=== PATIENT | male | born 1980 | race Caucasian/White ===

== ENCOUNTER 2024-05-10 08:41 | Outpatient (AMB) | payer OTHER, SELFPAY ==
--- NOTE | 2024-05-10 08:49 | A.OFFVIS_ITS ---
Vital Signs 05/10/24 08:50 Height 6 ft Weight 268 lb 8.368 oz BMI 36.4 BP 135/80 Blood Pressure Location Lt brachial Position Sitting Intake Visit Reasons: Colonoscopy Screening Intake Note: Ariel presents to in office visit today as a new patient for colonoscopy screening. CC: Patient denies having any GI symptoms or concerns today. 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 He is referred by [facility] adult Medicine in [place]. P.m. X Obesity -BMI 39 Psoriasis Hypertension History of AFib Efrne's thyroiditis Osteoarthritis of the knees Father in law had polps not genetic relative * SURGICAL HISTORY Patellar dislocation Cardiac ablation for AFib Rt total knee replacement * ALLERGIES: NKDA * PCP supplied LABS: 02/2024 unremarkable CBC, unremarkable renal panel, unremarkable hepatic panel, normal TSH TODAY'S VISIT This is his first colonoscopy. He denies any bowel or upper GI problems. There are no prior problems with anesthesia or sedation. His afib is well controlled he is only on asa for s/p TKR prophylaxis. He denies any respiratory problems No ID problems. No know fHX crc or polyps. [facility] Medical History (Updated 05/10/24 @ 09:43 by BHAVESH Moreno) Patellar dislocation Surgical History Total knee replacement status H/O cardiac radiofrequency ablation Family History Maternal Grandfather Heart attack Paternal Grandfather Heart attack Mother HTN (hypertension) Diabetes Social History Alcohol intake: never Patient Tobacco Use Status: Never used Tobacco Review of Systems Const Denies fatigue, Denies fever(s), Denies night sweats, Denies poor appetite and Denies weight loss ENT Reports Normal hearing present, Denies dysphagia, Denies odynophagia, Denies throat swelling and Denies tongue swelling Card Reports no additional complaints Resp Reports no additional complaints GI Details: Denies abdominal pain, Denies melena, Denies bloating, Denies hematochezia, Denies constipation, Denies GI cramping, Denies dysphagia, Denies excessive flatus, Denies early satiety, Denies heartburn, Denies diarrhea, Denies nausea, Denies odynophagia, Denies vomiting and Denies hematemesis Skin/Breast Denies pruritus, Denies lesions, Denies rash and Denies jaundice Neuro Reports Normal hearing present and Denies Abnormal speech present Endo Denies fatigue Aller/Immun Denies throat swelling and Denies tongue swelling Physical Exam Vital Signs: Last Vital Signs BP 135/80 05/10/24 08:50 BMI result Body Mass Index 36.4 Const General: cooperative, no acute distress, well developed and well groomed Nutritional Appearance: well nourished and obese Orientation/consciousness: oriented to person, oriented to place and oriented to time Limitations: No language barrier HEENT Head: Yes normocephalic and Yes atraumatic Eyes General: appearance normal, both eyes and all related structures Pupils: Equal, round and reactive pupils present Neck Neck: Yes normal visual inspection and Yes no lymphadenopathy Thyroid: Thyroid normal Resp Effort & Inspection: normal respiratory effort and able to speak in complete sentences Auscultation: clear to auscultation bilaterally Cardio Rate: regular rate Rhythm: regular rhythm Heart sounds: Normal, physiologic split S2 sound present Peripheral pulses: radial pulses present and posterior tibial pulses present GI Inspection: No distended, No Abdominal panniculus present and Yes obesity Palpation (GI): Soft to palpation, nontender, no guarding, not rigid and No hepatosplenomegaly present Percussion: Yes normal to percussion Auscultation: normal bowel sounds Rectal Exam - Male: Yes deferred Skin General skin exam: no rashes or lesions noted, turgor normal, skin not dry, no jaundice, No spider nevi and no striae Rashes: no rashes Nails: normal Neuro General: oriented to person, oriented to place and oriented to time Cranial nerves: Yes Equal, round and reactive pupils present and Yes Normal hearing present Speech: No Abnormal speech present Extrem Other: well healing surgical scar knee General: Yes edema (right ankle mild) Psych Appearance: grossly normal and well kempt Mental Status: mental status grossly normal Speech and movement: Normal speech and movement present Affect: normal affect Attitude: cooperative Thought process: Normal thought process present and not confabulating Thought content: Normal thought content present Insight: Good insight present (Psych) Judgement: Good judgement present (Psych) Assessment & Plan Assessment & Plan (1) Pre-op examination: Code(s): Z01.818 - Encounter for other preprocedural examination Category: Medical Plan This is his first colonoscopy. He denies any bowel or upper GI problems. There are no prior problems with anesthesia or sedation. His afib is well controlled he is only on asa for s/p TKR prophylaxis. He denies any respiratory problems No ID problems. No know fHX crc or polyps. Orders: Orders Colonoscopy - GI Use Only 05/10/24 Z01.818 - Encounter for other preprocedural examination Medications: New sodium,potassium,mag sulfates 17.5-3.13-1.6 gram (Suprep Bowel Prep Kit) 480 mL orally; FOR COLONOSCOPY PREP 354 mL 0RF Coding Level of Care Code New Pt Level 3 (48697) Diagnoses Pre-op examination Z01.818
[2024-05-10 08:50] VITALS: BP 135/80; BMI 36.4
== END 2024-05-10 09:41 | disposition home or self-care (01) ==
PROVIDERS: PCP Nurse Practitioner Family; Visit Provider Nurse Practitioner
DX: Z01.818 Encounter for other preprocedural examination (principal)
CPT/HCPCS: 99203

== ENCOUNTER → 2024-05-10 08:41 | Outpatient (BNVA) | payer OTHER, SELFPAY | PROVIDERS: PCP Nurse Practitioner Family; Visit Provider Nurse Practitioner ==

== ENCOUNTER 2024-10-18 08:30 | Day surgery (SDC) | payer OTHER, SELFPAY ==
[2024-10-16 15:25] VITALS: BMI 36.5
--- NOTE | 2024-10-17 13:17 | HO.ANESPROP2 ---
Documented by User: Kenya Contreras NP 10/17/24 13:17 HPI - Anesthesia Eval Consult details Narrative: 44yo M for Colonoscopy afib s/p rfa, no anticoag Anesthesia Pre-Procedure Meds Is the patient on any of the following meds?: GLP1/DPP4 PMFSH Active Problems Active Problems: All Active Problems Pre-op examination (Acute) Osteoarthritis of both knees (Acute) Efren's thyroiditis (Acute) History of atrial fibrillation without current medication (Acute) Psoriasis (Acute) Hypertension (Acute) Obesity (BMI 30-39.9) (Acute) Past Medical History Medical History Afib Psoriasis HTN (hypertension) Efren thyroiditis Osteoarthritis Patellar dislocation Family History Family History Maternal Grandfather Heart attack Paternal Grandfather Heart attack Mother HTN (hypertension) Diabetes Surgical History Surgical History Hx of total knee replacement H/O cardiac radiofrequency ablation Social History Social History Alcohol intake: never Patient Tobacco Use Status: Never used Tobacco Advance Directives: No Advance Directives Information Provided: Yes Meds Allergies Allergy/AdvReac Type Severity Reaction Status Date / Time No Known Allergies Allergy Verified 05/10/24 09:05 Home Medications ?Medication ?Instructions ?Recorded ?Confirmed ?Last Taken ?Type amlodipine 5 mg tablet 5 mg PO DAILY 05/10/24 10/16/24 Unknown History celecoxib 200 mg capsule 200 mg PO DAILY 05/10/24 10/16/24 Unknown History levothyroxine 112 mcg tablet 112 mcg PO DAILY 05/10/24 10/16/24 Unknown History losartan 50 mg tablet 50 mg PO DAILY 05/10/24 10/16/24 Unknown History tirzepatide (weight loss) 2.5 0.5 mg subcut QWEEK 05/10/24 10/16/24 Unknown History mg/0.5 mL subcutaneous pen injector (Zepbound) Exam Height,Weight and Vital Signs: Height 6 ft Weight 122.016 kg Assessment and Plan Assessment Anesthesia Assessment: Chart Reviewed Documented by User: Dalia Yan MD 10/18/24 09:33 PMFSH Past Medical History Medical History Afib Psoriasis HTN (hypertension) Efren thyroiditis Osteoarthritis Patellar dislocation Family History Family History Maternal Grandfather Heart attack Paternal Grandfather Heart attack Mother HTN (hypertension) Diabetes Family history of problems with anesthesia: No Surgical History Surgical History Hx of total knee replacement H/O cardiac radiofrequency ablation History of Problems with Anesthesia: No Social History Social History Alcohol intake: never Patient Tobacco Use Status: Never used Tobacco Advance Directives: No Advance Directives Information Provided: Yes Meds Allergies Allergy/AdvReac Type Severity Reaction Status Date / Time No Known Allergies Allergy Verified 05/10/24 09:05 Home Medications ?Medication ?Instructions ?Recorded ?Confirmed ?Last Taken ?Type amlodipine 5 mg tablet 5 mg PO DAILY 05/10/24 10/16/24 Unknown History celecoxib 200 mg capsule 200 mg PO DAILY 05/10/24 10/16/24 Unknown History levothyroxine 112 mcg tablet 112 mcg PO DAILY 05/10/24 10/16/24 Unknown History losartan 50 mg tablet 50 mg PO DAILY 05/10/24 10/16/24 Unknown History tirzepatide (weight loss) 2.5 0.5 mg subcut QWEEK 05/10/24 10/16/24 Unknown History mg/0.5 mL subcutaneous pen injector (Zepbound) Exam Airway Mallampati Class: II TM Dist: >3cm Neck ROM: Full Heart: afib Lungs: cta Assessment and Plan Assessment Anesthesia Assessment: Anesthesia Plan Discussed Final Anesthetic Review Family History of Problems with Anesthesia: No History of Problems with Anesthesia: No NPO: Yes ASA Class: III Final Preanesthetic Review: No Changes in Pt Med Stat, Meds/Allgs Chart Reviewed, Consent Obtained/Reviewed and Anes Risks/Benef Reviewed Patient Risk: Intermediate Procedure Risk: Low Anesthetic Plan Anesthetic Plan: MAC: Disposition: Standard PACU
--- NOTE | 2024-10-18 09:14 | MHC.SHP ---
Pre-Procedural Eval Section A - 24 Hr Update-Section A only Date of Service: 10/18/24 Section B - Complete if H&P > 30 days Chief Complaint: Encounter for screening for malignant neoplasm of Details of Present Illness: hx of heart disease Relevant Family History (Specify if Yes): Yes Relevant Social History: None Present Medications: see Short Stay Collaborative assessment Medical History: Significant History (Afib Psoriasis HTN (hypertension) Efren thyroiditis Osteoarthritis Patellar dislocation) History of Previous Operations: Relevant previous surgery/procedure and date(s) (Hx of total knee replacement H/O cardiac radiofrequency ablation) Allergies: Allergies Allergy/AdvReac Type Severity Reaction Status Date / Time No Known Allergies Allergy Verified 05/10/24 09:05 Review of Systems Sugical H&P ROS: Negative: Constitution, Cardiovascular, Respiratory, Neurological, Psychiatric, Hem-Onc, Allergic/Immunologic, Gastrointestinal, Genitourinary, Musculoskeletal, Integumentary, Endocrine and Eyes/Ears/Nose/Throat Exam Surgical H&P Exam: Normal: HEENT, Normal: Heart, Normal: Lungs, Normal: Extremities, Normal: Abdomen, Normal: Skin and Normal: Neurological Plan Diagnosis/Plan: Unchanged I have reviewed the history and physical and performed a pertinent physical examination on my patient. No changes have occurred unless specified. Time Spent With Patient Time: Total time managing care of this patient today ____ minutes.
[2024-10-18 09:44] VITALS: BMI 32.0
[2024-10-18 10:02] VITALS: BP 110/80; PULSE 84; RESP 16; TEMP 36.4; O2SAT 99
[2024-10-18] MEDS: Lactated Ringers 1,000 ML 100 ML IVCONT (10:05)
--- NOTE | 2024-10-18 10:29 | HO.OPN-COLON ---
Colonoscopy Operative Note Operative Note Date of Service: 10/18/24 Narrative: Operative Information Procedure Description: Colonoscopy Indication: screening Anesthesia: MAC COLONOSCOPY Instrument: Olympus variable stiffness pediatric scope 190L Colonoscopy Monitoring: Vital signs and clinical assessment, continuous EKG monitoring, Pulse oximetry, Carbon Dioxide monitoring and blood pressure monitoring were done throughout the procedure. Colon withdrawal time was 9 minutes. Procedure: The patient was placed in the left lateral decubitis position and pre-procedure medications were administered. After a digital rectal examination of the ano-rectum, the video colonoscope was inserted into the rectum and advanced through the colon to the cecum/TI. The colonoscope was slowly withdrawn in a retrograde panoramic fashion and the colon mucosa was carefully examined including a retroflexed view of the rectum. Findings and interventions are described below. Procedure Difficulty: easy Findings: Terminal Ileum-normal Cecum:normal Ascending Colon: 8-10 mm sessile polyp with pit markings suggestive of adenoma, removed with cold snare Transverse Colon -normal Descending Colon:normal Sigmoid Colon: moderate diverticulosis Rectum: Retroflexion with small to medium internal hemorrhoids seen, grade I Anorectum - normal Intervention: cold snare Colon preparation: [place] Bowel Preparation Scale Right colon; 2 Transverse colon: 2 Left colon; 2 (0 = Unprepared colon segment with mucosa not seen due to solid stool that cannot be cleared. 1 = Portion of mucosa of the colon segment seen, but other areas of the colon segment not well seen due to staining, residual stool and/or opaque liquid. 2 = Minor amount of residual staining, small fragments of stool and/or opaque liquid, but mucosa of colon segment seen well. 3 = Entire mucosa of colon segment seen well with no residual staining, small fragments of stool or opaque liquid) Impression and Post Procedure Diagnosis: diverticulosis colon polyp internal hemorrhoids Plan: High fiber diet leaflet Avoid straining at stool, epsom salts and sitz bath, anusol supps or cream Repeat Colonoscopy in 5 years due to polyp or earlier if clinically indicated Above findings were reviewed with the patient and relevant handouts were provided if indicated.
[2024-10-18 10:35] VITALS: BP 103/61; PULSE 83; RESP 16; TEMP 36.9; O2SAT 97
[2024-10-18 10:50] VITALS: BP 105/74; PULSE 71; RESP 16; TEMP 36.9
--- OUTSIDE RECORDS SUMMARY | 2024-10-24 16:27 | XMS_ITS | Continuity of Care Document ---
Author Organization [facility] Julian lt Address [address] [place] [address]- Care Team Providers Care Assistant Director Of Nursing Name Role Phone Keisha JONES, Jame Marcelo Primary Care Physician [phone] [facility] Date(s): 09/18/24 - 10/18/24 [facility] Adult [address] [place] [address]- Encounter Type: Triage Allergies, Adverse Reactions, Alerts No Known Allergies Immunizations Given and Recorded Vaccine Date Status Refusal Reason influenza virus vaccine, inactivated 07/19/24 Bhanu rded influenza virus vaccine, inactivated 07/07/23 Bhanu rded influenza virus vaccine, inactivated 07/14/21 Bhanu rded influenza virus vaccine, inactivated 08/09/19 Bhanu rded influenza virus vaccine, inactivated 08/05/18 Bhanu rded influenza virus vaccine, inactivated 08/07/17 Bhanu rded influenza virus vaccine, inactivated 1 07/30/17 [facility] influenza virus vaccine, inactivated 08/07/16 Bhanu rded influenza virus vaccine, inactivated 08/15/14 Bhanu rded SARS-CoV-2(COVID-19)mRNA-LNP vac([id number]) 07/19/24 Recorded SARS-CoV-2(COVID-19)mRNA-LNP vac([id number]) 08/31/23 Recorded [id number] bivalent booster vax 12/07/22 Recorded Influenza Virus Vaccine (oldterm) 07/09/22 Recorde d Influenza Virus Vaccine (oldterm) 2 07/10/20 Recor ded Influenza Virus Vaccine (oldterm) 3 08/29/19 Recor ded SARS-CoV-2 (COVID-19) mRNA-1273 vaccine 10/22/21 R ecorded SARS-CoV-2 (COVID-19) mRNA-1273 vaccine 01/21/21 R ecorded SARS-CoV-2 (COVID-19) mRNA-1273 vaccine 12/24/20 R ecorded tetanus-diphtheria toxoids (Td) 4 01/23/20 Given Influenza Inactive (IM) (oldterm) 5 08/04/15 Given tetanus/diphtheria/pertussis, acel(Tdap) 11/15/10 Recorded [facility] 3Result Comment: [facility] 4Result Comment: [id number] 5Admin Note: specific date unknown Medications levothyroxine 0.112 mg oral tablet 1 tablet, By Mouth, Daily, # 90 tablet, 1 Refills, Maintenance, 07/19/24 6:40:00 PM EDT, [facility]/pharmacy#[id number], 186, cm, 05/11/24 9:08:00 EDT, Height, 126.1, kg, 04/05/24 2:35:00 EDT, Dry Weight Start Date: 07/19/24 Status: Ordered Quantity: 90.0 Unit: tablet Repeat number: 2 losartan 50 mg oral tablet 1 tablet = 50 mg, By Mouth, Daily, # 90 tablet, 1 Refills, Maintenance, 07/04/24 5:32:00 PM EDT, Tablet, [facility]/pharmacy #[id number], Partial fill upon patient request if the prescription is for a schedule II opioid drug., 186, cm, 05/11/24 9:08:00 EDT, Height, 126.1, kg, 04/05/24 2:35:00 EDT, Dry Weight Start Date: 07/04/24 Status: Ordered Quantity: 90.0 Unit: tablet Repeat number: 2 Indication: Essential (primary) hypertension Naproxen By Mouth, 2 times a day, 0 Refills, Maintenance, 09/28/23 3:39:00 PM EST, Partial fill upon patientrequest if the prescription is for a schedule II opioid drug. Start Date: 09/28/23 Status: Ordered Repeat number: 1 Zepbound 7.5 mg/0.5 mL subcutaneous solution = 7.5 mg, Subcutaneous Injection, Every week, rotate injection sites, # 4 each, 0 Refills, Maintenance, 10/02/24 10:16:00 AM EST, [facility], [id number], Partial fill upon patient request if the prescription is for a schedule II opioid drug., 186, cm, 09/15/24 10:49:00 EDT, Height, 126.1, kg,04/05/24 2:35:00 EDT, Dry Weight Start Date: 10/02/24 Status: Ordered Quantity: 4.0 Unit: each Repeat number: 1 Problem List Condition Confirmation Course Effective Dates Status Health St atus Informant Gout Confirmed Active History of atrial fibrillation - in remission since 2014 Confirmed Active Efren's thyroiditis Confirmed Active HTN (hypertension) Confirmed Active Pulmonary nodule, left Confirmed Active Obese class I Confirmed Active OA (osteoarthritis), Left knee Confirmed Active Psoriasis Confirmed Active Social History Social History Type Response Smoking Status Never smoker entered on: 01/18/18 Sex Sex Representation Male (finding) Patient Care team information Care Team Personnel Name: Jame Valdes MD Position: [facility] Physician - Primary Care Member Role: PCP Address: [address] [place] [id number]- Telecom: Name: Supa KUMAR, Jame Schultz Position: [facility] RN Member Role: Primary Care Nurse Care Team Related Persons Name: GONZALO CHAVEZ Insurance Providers Guarantor name: JESSICA CHAVEZ Health Plan Information #: 1 Payer: [employer] Member Number: NA Policy Number: NA Group Number: NA
--- OUTSIDE RECORDS SUMMARY | 2024-10-24 16:27 | XMS_ITS | Continuity of Care Document ---
Author Organization [facility] [place] Julian lt Address [address] [place] [address]- Care Team Providers Care Bridge Welder Name Role Phone Jame Valdes MD Primary Care Physician [phone] Encounter [facility] Date(s): 09/01/24 - 10/01/24 [facility] Adult [address] [place] [address]- Encounter Type: Triage Allergies, Adverse Reactions, Alerts [...] virus vaccine, inactivated 08/15/14 Bhanu rded SARS-CoV-2(COVID-19)mRNA-LNP vac([id number]) 07/19/24 Recorded SARS-CoV-2(COVID-19)mRNA-LNP vac([id number]) 08/31/23 Recorded [id number] bivalent booster vax 12/07/22 Recorded Influenza Virus [...] 11/15/10 Recorded [facility] 3Result Comment: [facility] 4Result Comment: [id number] 5Admin Note: specific date unknown Medications levothyroxine 0.112 mg oral tablet 1 tablet, By Mouth, Daily, # 90 tablet, 1 Refills, Maintenance, 07/19/24 6:40:00 PM EDT, [facility]/pharmacy#[id number], 186, cm, 05/11/24 9:08:00 EDT, Height, 126.1, kg, 04/05/24 2:35:00 EDT, Dry Weight Start Date: 07/19/24 Status: Ordered Quantity: 90.0 Unit: tablet Repeat number: 2 losartan 50 mg oral tablet 1 tablet = 50 mg, By Mouth, Daily, # 90 tablet, 1 Refills, Maintenance, 07/04/24 5:32:00 PM EDT, Tablet, [facility]/pharmacy #[id number], Partial fill upon patient request if [...] sites, # 4 each, 0 Refills, Maintenance, 09/01/24 9:56:00 AM EDT, Solution, [id number], Partial fill upon patient request if theprescription is for a schedule II opioid drug., 186, cm, 05/11/24 9:08:00 EDT, Height, 126.1, kg, 04/05/24 2:35:00 EDT, Dry Weight Start Date: 09/01/24 Status: Ordered Quantity: 4.0 Unit: each Repeat [...] Team Personnel Name: Jame Valdes MD Position: [facility] Physician - Primary Care Member Role: PCP Address: [address] [place] [phone]- Telecom: Name: Supa KUMAR, Jame Schultz Position: [facility] RN Member Role: Primary Care Nurse Care Team Related Persons Name: GONZALO CHAVEZ Insurance Providers Guarantor name: JESSICA CHAVEZ [facility] Plan Information #: 1 Payer: [employer] Member Number: NA Policy Number: NA Group Number: NA
--- OUTSIDE RECORDS SUMMARY | 2024-10-24 16:27 | XMS_ITS | Continuity of Care Document ---
Author Organization [facility] Address [address] [place] [address] [address], [address] [place] [address]- Care Team Providers Care Regional Sales Engineer Name Role Phone Keisha JONES, Jame Marcelo Primary Care Physician [phone] Encounter [facility] Date(s): 10/09/24 - 10/16/24 [facility] [address] [place] [address] Drive [address] [place] [address]- Attending Physician: Chandan Knowles DO Encounter Type: Office Visit Allergies, Adverse Reactions, Alerts No Known Allergies [...] virus vaccine, inactivated 08/15/14 Bhanu rded SARS-CoV-2(COVID-19)mRNA-LNP vac([id number]) 07/19/24 Recorded SARS-CoV-2(COVID-19)mRNA-LNP vac([id number]) 08/31/23 Recorded [id number] bivalent booster vax 12/07/22 Recorded Influenza Virus [...] Given tetanus/diphtheria/pertussis, acel(Tdap) 11/15/10 Recorded 1Admin Note: [facility] 2Result Comment: [facility] Pharmacy 3Result Comment: [facility] 4Result Comment: [id number] 5Admin Note: specific date unknown Medications levothyroxine 0.112 mg oral tablet 1 tablet, By Mouth, Daily, # 90 tablet, 1 Refills, Maintenance, 07/19/24 6:40:00 PM EDT, [facility]/pharmacy#[id number], 186, cm, 05/11/24 9:08:00 EDT, Height, 126.1, kg, 04/05/24 2:35:00 EDT, Dry Weight Start Date: 07/19/24 Status: Ordered Quantity: 90.0 Unit: tablet Repeat number: 2 losartan 50 mg oral tablet 1 tablet = 50 mg, By Mouth, Daily, # 90 tablet, 1 Refills, Maintenance, 07/04/24 5:32:00 PM EDT, Tablet, [facility]/pharmacy #[id number], Partial fill upon patient request if [...] Care team information Care Team Personnel Name: Keisha JONES, Jame Marcelo Position: [facility] Physician - Primary Care Member Role: PCP Address: [address] [place] [phone]- Telecom: Name: Supa KUMAR, Jame Schultz Position: [facility] RN Member Role: Primary Care Nurse Care Team Related Persons Name: GONZALO CHAVEZ Insurance Providers Guarantor name: JESSICA CHAVEZ Health Plan Information #: 1 Payer: [facility] [employer] HMO Member Number: [id number] Policy Number: NA Group Number: [id number] Health Plan Information #: 2 Payer: [facility] [employer] Member Number: [id number] Policy Number: NA Group Number: NA
== END 2024-10-18 11:04 | disposition home or self-care (01) ==
PROVIDERS: PCP Nurse Practitioner Adult Health; Visit Provider Internal Medicine Gastroenterology
PROC: 0DJD8ZZ Inspection of Lower Intestinal Tract, Via Natural or Artificial Opening Endoscopic (ICD-10-PCS; CPT 45378; principal; 2024-10-18 10:20)
DX: Z12.11 Encounter for screening for malignant neoplasm of colon (principal); D12.2 Benign neoplasm of ascending colon; K57.30 Diverticulosis of large intestine without perforation or abscess without bleeding; K64.0 First degree hemorrhoids; I10 Essential (primary) hypertension; I48.91 Unspecified atrial fibrillation; E06.3 Autoimmune thyroiditis; E66.9 Obesity, unspecified; Z68.36 Body mass index [BMI] 36.0-36.9, adult
CPT/HCPCS: 45385; 88305; J2003; J2704

== ENCOUNTER → 2024-10-18 08:30 | Outpatient (BNV) | payer OTHER, SELFPAY | PROVIDERS: PCP Nurse Practitioner Adult Health; Visit Provider Internal Medicine Gastroenterology | DX: Z12.11 Encounter for screening for malignant neoplasm of colon (principal); D12.2 Benign neoplasm of ascending colon; K57.30 Diverticulosis of large intestine without perforation or abscess without bleeding; K64.0 First degree hemorrhoids | CPT/HCPCS: 45385 ==

== ENCOUNTER 2025-07-13 00:13 | Emergency (ER) | payer OTHER, SELFPAY ==
[2025-07-13 00:29] VITALS: BP 132/72; PULSE 74; RESP 18; TEMP 36.9; O2SAT 99; BMI 28.4
[2025-07-13 01:45] VITALS: BP 120/76; PULSE 75; RESP 18; TEMP 36.6; O2SAT 97
--- NOTE | 2025-07-13 02:38 | ED.EXTPRO ---
HPI - Extremity Problem General Chief complaint: Extremity Problem Stated complaint: possible gout attack Time Seen by Provider: 07/13/25 02:36 Source: patient Mode of arrival: ambulatory Limitations: no limitations History of Present Illness ED Provider: Jose ZHANG HPI Narrative: The patient is a 45-year-old male presenting to the ED for evaluation of pain and swelling of the left 1st MTP radiating to the ball of his foot. The patient denies any recent injury, reports a history of gout but has not had a gout flare in the past 15 years. The patient is not currently treated with any colchicine or allopurinol. The patient denies associated fever/chills, nausea, vomiting, or other acute systemic complaint. The patient denies any significant surrounding erythema or advancing erythema. Related Data Home Medications ?Medication ?Instructions ?Recorded ?Confirmed amlodipine 5 mg tablet 5 mg PO DAILY 05/10/24 10/16/24 celecoxib 200 mg capsule 200 mg PO DAILY 05/10/24 10/16/24 levothyroxine 112 mcg tablet 112 mcg PO DAILY 05/10/24 10/16/24 losartan 50 mg tablet 50 mg PO DAILY 05/10/24 10/16/24 tirzepatide (weight loss) 2.5 0.5 mg subcut QWEEK 05/10/24 10/16/24 mg/0.5 mL subcutaneous pen injector (Zepbound) Previous Rx's ?Medication ?Instructions ?Recorded sodium,potassium,mag sulfates 17.5 480 ml PO .COMPLEX #354 mL 05/10/24 gram-3.13 gram-1.6 gram oral soln (Suprep Bowel Prep Kit) indomethacin 50 mg capsule 50 mg PO TID #15 caps 07/13/25 prednisone 20 mg tablet 60 mg (3 x 20 mg) PO DAILY 5 days 07/13/25 #15 tabs Allergies Allergy/AdvReac Type Severity Reaction Status Date / Time No Known Allergies Allergy Verified 07/13/25 00:35 Review of Systems Review of Systems: Yes all other systems are reviewed and are negative PMFSH Past Medical History Medical History Afib Psoriasis HTN (hypertension) Efren thyroiditis Osteoarthritis Patellar dislocation Surgical History Hx of total knee replacement H/O cardiac radiofrequency ablation Family History Family History Maternal Grandfather Heart attack Paternal Grandfather Heart attack Mother HTN (hypertension) Diabetes Social History Social History Are you a primary critical care unit nurse to a significant other at home: No Do you presently have visiting nurse or other home services: No Alcohol intake: never Patient Tobacco Use Status: Never used Tobacco Smoked in Last 30 Days: No Use of substances other than those prescribed or required for medical reasons: No Advance Directives: No Advance Directives Information Provided: Yes Physical Exam Vital Signs: Vital Signs: Last Vital Signs Temp 97.9 F 07/13/25 01:45 Pulse 75 07/13/25 01:45 Resp 18 07/13/25 01:45 BP 120/76 07/13/25 01:45 Pulse Ox 97 07/13/25 01:45 O2 Del Method Room Air 07/13/25 01:45 BMI result Body Mass Index 28.4 CONSTITUTIONAL: The patient appears non-toxic, well nourished and in no acute distress. Vital signs as documented. HEAD: Atraumatic, normocephalic. EYES: EOMs grossly intact, pupils equal, conjunctiva clear, no exudate. ENT: Nares patent, no discharge. Airway patent, no audible stridor, visible mucosa is pink and moist without noted lesions. NECK: trachea is midline, no obvious masses or gross abnormalities. CHEST: Symmetric movement, normal appearance. LUNGS: Non-labored work of breathing. CARDIAC: No evidence of hypoperfusion. ABDOMEN: Nondistended, no obvious injury. : Deferred. EXTREMITIES: There is marked tenderness to palpation of the left 1st MTP with the associated swelling without overlying erythema or significant warmth. There is painful but not impaired range of motion, distal CSM is intact, 2+ DP/PT pulses, no ankle or calf tenderness or swelling. No open injury. The patient is 1st toenail is chronically absent. Patient moves all other extremities spontaneously without reported pain. No obvious injury or deformity noted. NEURO: Alert and oriented x3, CN II-XII appear grossly intact. Cerebellar Functioning grossly intact. Speech clear and appropriate. SKIN: Warm, dry, color appropriate. No rashes or lesions noted. Medical Decision Making Medical Decision Making [facility] Narrative: 2:46 AM 07/13/2025 (Lo ZHNAG): The patient is a 45 year old male presenting to the ED for evaluation of swelling and pain of the left 1st MTP consistent with his previous episodes of gout. The patient has no recent injury, exam reveals no evidence of cellulitis, septic arthritis, or open injury. The patient will be treated with indomethacin and prednisone and discharged to follow up with PCP. Differential Diagnosis Differential Diagnoses: The differential diagnosis associated with the presentation includes Cellulitis, septic arthritis, contusion, fracture, strain External Record Review External record reviewed: Outpatient record Tests considered The following testing was considered but not selected: Plain film extremity, CT extremity Prescription Management I considered prescription management with: Pain Medication and Antibiotic Discharge Plan Discharge Clinical Impression: Gout Patient Disposition: Home, Self-Care Instructions: Low Purine Diet (ED), Gout (ED) Additional Instructions: Thank you for choosing [facility]'s Emergency Department for your care today. At this time there is no indication for admission to the hospital or continued ED observation, and it is safe to discharge you home. Your examination today is reassuring, there was no concern for an infectious or traumatic process. Your symptoms are consistent with the your diagnosis of gout. Please take prednisone as prescribed until it is finished. Please take indomethacin every 8 hours as needed for additional pain. Do not take ibuprofen, naproxen, or other NSAIDs while taking indomethacin. You may also take 1 g of Tylenol every 8 hours as needed for additional pain. Please ice and elevate the area as tolerated to reduce swelling. Please follow up with your primary care physician for re-evaluation, additional management of your symptoms, and continued preventative care. If you do not have a primary care physician, please call the [facility] at [phone] to establish a new primary care physician. While waiting to establish your new primary care physician, you can call our [facility] at [phone] for non-emergency needs. Please return to the emergency department if you develop a severe or sudden change in your symptoms, a fever over 100.4 that does not improve with Tylenol or Ibuprofen, recurrent vomiting, or any other new or worsening symptoms or concerns. Prescriptions: New indomethacin 50 mg capsule 50 mg PO TID Qty: 15 0RF Rx Instructions: administer with food or milk prednisone 20 mg tablet 60 mg PO DAILY 5 Days Qty: 15 0RF No Action celecoxib 200 mg capsule 200 mg PO DAILY amlodipine 5 mg tablet 5 mg PO DAILY losartan 50 mg tablet 50 mg PO DAILY levothyroxine 112 mcg tablet 112 mcg PO DAILY Zepbound 2.5 mg/0.5 mL pen injector 0.5 mg subcut QWEEK sodium,potassium,mag sulfates [Suprep Bowel Prep Kit] 17.5-3.13-1.6 gram recon soln 480 ml PO .COMPLEX Qty: 354 0RF Rx Instructions: 480 mL orally; FOR COLONOSCOPY PREP Referrals: Physician,Unknown J [Primary Care Provider, Medical] Clinical Impression: Gout Print Language: Syrian
[2025-07-13 03:34] VITALS: BP 120/76; PULSE 75; RESP 18; TEMP 36.6; O2SAT 97
== END 2025-07-13 03:35 | disposition home or self-care (01) ==
PROVIDERS: Emergency Provider Emergency Medicine
DX: M10.9 Gout, unspecified (principal); M79.675 Pain in left toe(s); M79.89 Other specified soft tissue disorders
CPT/HCPCS: 99283; 99284